=== PATIENT | male | born 1995 | race Two or more races ===

== ENCOUNTER 2022-06-17 14:37 | Emergency (ER) | payer SELFPAY ==
[2022-06-17 15:26] VITALS: BP 145/91; PULSE 93; RESP 18; TEMP 37.1; O2SAT 99; BMI 29.8
--- NOTE | 2022-06-17 15:26 | ED.MALEGU ---
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 Patient reports on Friday he had unprotected sexual intercourse with a new partner. Also complaining of urinary frequency. Denies dysuria, testicular pain, vomiting or fever. <Mary Ellen Brambila NP - Last Filed: 06/17/22 18:11> Related Data Home medications: Previous Rx's Medication Instructions Recorded doxycycline monohydrate 100 mg 100 mg PO BID #14 tabs 06/17/22 tablet <SHANNAN Melissa - Last Filed: 06/17/22 15:29> Allergies/Adverse reactions: Allergies Allergy/AdvReac Type Severity Reaction Status Date / Time No Known Allergies Allergy Verified 06/17/22 15:29 <SHANNAN Melissa - Last Filed: 06/17/22 15:29> Review of Systems Review of Systems: Yes all other systems are reviewed and are negative <LYLE Robles Last Filed: 06/17/22 18:11> Constitutional: Constitutional: Reports no additional constitutional complaints, Denies body ache(s), Denies chills, Denies fever(s), Denies headache(s) and Denies weakness <LYLE Robles Last Filed: 06/17/22 18:11> Eyes: Eyes: Reports no additional eye complaints and Denies change in vision <Mary Ellen Brambila TRANSVERSE ABDOMINAL MUSCLE SURGEON - Last Filed: 06/17/22 18:11> ENT: Reports system reviewed and no additional complaints, except as documented, Denies dizziness, Denies headache(s), Denies nasal congestion, Denies nasal discharge and Denies neck pain <Mary Ellen Brambila TRANSVERSE ABDOMINAL MUSCLE SURGEON - Last Filed: 06/17/22 18:11> Cardiovascular: Cardiovascular: Reports no additional cardiovascular complaints, Denies chest pain, Denies leg edema and Denies dyspnea <Mary Ellen Brambila, TRANSVERSE ABDOMINAL MUSCLE SURGEON - Last Filed: 06/17/22 18:11> Respiratory: Respiratory: Reports no additional respiratory complaints, Denies cough and Denies dyspnea <Mary Ellen Brambila, TRANSVERSE ABDOMINAL MUSCLE SURGEON - Last Filed: 06/17/22 18:11> Gastrointestinal: Gastrointestinal: Reports no additional gastrointestinal complaints, Denies abdominal pain, Denies diarrhea, Denies nausea and Denies vomiting <Mary Ellen Brambila TRANSVERSE ABDOMINAL MUSCLE SURGEON - Last Filed: 06/17/22 18:11> Genitourinary: Genitourinary: Reports penile discharge and Denies urinary incontinence <Mary Ellen Brambila, TRANSVERSE ABDOMINAL MUSCLE SURGEON - Last Filed: 06/17/22 18:11> Comments: Frequent urination <Mary Ellen Brambila TRANSVERSE ABDOMINAL MUSCLE SURGEON - Last Filed: 06/17/22 18:11> Musculoskeletal: Musculoskeletal: Reports no additional musculoskeletal complaints, Denies back pain, Denies arthralgias, Denies joint swelling, Denies neck pain, Denies numbness and Denies tingling <Mary Ellen Brambila TRANSVERSE ABDOMINAL MUSCLE SURGEON - Last Filed: 06/17/22 18:11> Integumentary/Breasts: Skin/Breast: Reports system reviewed and no additional complaints, except as docu and Denies rash <Mary Ellen Brambila TRANSVERSE ABDOMINAL MUSCLE SURGEON - Last Filed: 06/17/22 18:11> Neurologic: Reports system reviewed and no additional complaints, except as documented, Denies Abnormal speech present, Denies dizziness, Denies headache(s), Denies numbness, Denies tingling and Denies weakness <Mary Ellen Bramibla TRANSVERSE ABDOMINAL MUSCLE SURGEON - Last Filed: 06/17/22 18:11> PMFSH Past Medical History Attestation statement: The following information was validated with the patient. <Mary Ellen Brambila NP - Last Filed: 06/17/22 18:11> Source: old records reviewed <Mary Ellen Brambila NP - Last Filed: 06/17/22 18:11> Social History Social History: Social History Alcohol intake: never Smoked in Last 30 Days: No Use of substances other than those prescribed or required for medical reasons: No Advance Directives: No Advance Directives Information Provided: No <SHANNAN Melissa - Last Filed: 06/17/22 15:29> Physical Exam Vital Signs: Vital Signs: Last Vital Signs Temp 98.5 F 06/17/22 18:03 Pulse 83 06/17/22 18:03 Resp 19 06/17/22 18:03 BP 145/79 H 06/17/22 18:03 Pulse Ox 99 06/17/22 18:03 O2 Del Method Room Air 06/17/22 18:03 BMI result Body Mass Index 29.8 <SHANNAN Meilssa - Last Filed: 06/17/22 15:29> Vital Signs: Last Vital Signs Temp 98.5 F 06/17/22 18:03 Pulse 83 06/17/22 18:03 Resp 19 06/17/22 18:03 BP 145/79 H 06/17/22 18:03 Pulse Ox 99 06/17/22 18:03 O2 Del Method Room Air 06/17/22 18:03 BMI result Body Mass Index 29.8 <Mary Ellen Brambila NP - Last Filed: 06/17/22 18:11> Const: General: cooperative, healthy appearing, comfortable and no acute distress <Mary Ellen Brambila NP - Last Filed: 06/17/22 18:11> Orientation/consciousness: patient oriented x3 <Mary Ellen Brambila NP - Last Filed: 06/17/22 18:11> Limitations: no limitations <Mary Ellen Brambila NP - Last Filed: 06/17/22 18:11> HEENT: Head: Yes normal to inspection <Mary Ellen Brambila NP - Last Filed: 06/17/22 18:11> Ears: hearing grossly normal bilaterally <Mary Ellen Brambila TRANSVERSE ABDOMINAL MUSCLE SURGEON - Last Filed: 06/17/22 18:11> General nose exam: Normal external nose present <Mary Ellen Brambila TRANSVERSE ABDOMINAL MUSCLE SURGEON - Last Filed: 06/17/22 18:11> Face and sinus: Yes normal facial exam <Mary Ellen Brambila TRANSVERSE ABDOMINAL MUSCLE SURGEON - Last Filed: 06/17/22 18:11> Mouth: Normal oral and palatal mucosa present <Mary Ellen Brambila, TRANSVERSE ABDOMINAL MUSCLE SURGEON - Last Filed: 06/17/22 18:11> Throat: Yes posterior oropharynx normal <Mary Ellen Brambila, TRANSVERSE ABDOMINAL MUSCLE SURGEON - Last Filed: 06/17/22 18:11> Eyes: General: appearance normal, both eyes and all related structures <Mary Ellen Bramibla, TRANSVERSE ABDOMINAL MUSCLE SURGEON - Last Filed: 06/17/22 18:11> Pupils: Equal, round and reactive pupils present <Mary Ellen Brambila, TRANSVERSE ABDOMINAL MUSCLE SURGEON - Last Filed: 06/17/22 18:11> Neck: Neck: Yes normal visual inspection <Mary Ellen Brambila, TRANSVERSE ABDOMINAL MUSCLE SURGEON - Last Filed: 06/17/22 18:11> Chest: Chest palpation & inspection: normal inspection of the chest <Mary Ellen Brambila TRANSVERSE ABDOMINAL MUSCLE SURGEON - Last Filed: 06/17/22 18:11> Resp: Effort & Inspection: normal respiratory effort <Mary Ellen Brambila TRANSVERSE ABDOMINAL MUSCLE SURGEON - Last Filed: 06/17/22 18:11> Auscultation: clear to auscultation bilaterally <Mary Ellen Brambila TRANSVERSE ABDOMINAL MUSCLE SURGEON - Last Filed: 06/17/22 18:11> Cardio: Rate: regular rate <Mary Ellen Brambila TRANSVERSE ABDOMINAL MUSCLE SURGEON - Last Filed: 06/17/22 18:11> Rhythm: regular rhythm <Mary Ellen Brambila TRANSVERSE ABDOMINAL MUSCLE SURGEON - Last Filed: 06/17/22 18:11> Peripheral pulses: Peripheral pulses 2+ throughout <Mary Ellen Brambila TRANSVERSE ABDOMINAL MUSCLE SURGEON - Last Filed: 06/17/22 18:11> GI: Inspection: Yes normal to inspection <Mary Ellen Brambila TRANSVERSE ABDOMINAL MUSCLE SURGEON - Last Filed: 06/17/22 18:11> Palpation (GI): Soft to palpation and nontender <Mary Ellen Brambila TRANSVERSE ABDOMINAL MUSCLE SURGEON - Last Filed: 06/17/22 18:11> Auscultation: normal bowel sounds <Mary Ellen Brambila TRANSVERSE ABDOMINAL MUSCLE SURGEON - Last Filed: 06/17/22 18:11> : Other: che[place] assistant district attorney facilitator <Mary Ellen Brambila TRANSVERSE ABDOMINAL MUSCLE SURGEON - Last Filed: 06/17/22 18:11> Penis: normal penis and uncircumcised <Mary Ellen Brambila TRANSVERSE ABDOMINAL MUSCLE SURGEON - Last Filed: 06/17/22 18:11> Meatus: meatus normal <Mary Ellen Brambila, TRANSVERSE ABDOMINAL MUSCLE SURGEON - Last Filed: 06/17/22 18:11> Scrotum: scrotum normal <Mary Ellen Brambila TRANSVERSE ABDOMINAL MUSCLE SURGEON - Last Filed: 06/17/22 18:11> Testes: Testes normal, no testicular swelling and no testicular tenderness <Mary Ellen Brambila TRANSVERSE ABDOMINAL MUSCLE SURGEON - Last Filed: 06/17/22 18:11> Back/Spine/Pelvis: Thoracic/Lumbar Spine: thoracic and lumbar spine normal to inspection <Mary Ellen Brambila TRANSVERSE ABDOMINAL MUSCLE SURGEON - Last Filed: 06/17/22 18:11> Skin: General skin exam: no rashes or lesions noted <Mary Ellen Brambila TRANSVERSE ABDOMINAL MUSCLE SURGEON - Last Filed: 06/17/22 18:11> Neuro: General: patient oriented x3, no focal motor deficits and normal sensation to monofilament <Mary Ellen Brambila TRANSVERSE ABDOMINAL MUSCLE SURGEON - Last Filed: 06/17/22 18:11> Cranial nerves: Yes Equal, round and reactive pupils present <Mary Ellen Brambila TRANSVERSE ABDOMINAL MUSCLE SURGEON - Last Filed: 06/17/22 18:11> Cognition (Neuro): normal cognition <Mary Ellen Brambila TRANSVERSE ABDOMINAL MUSCLE SURGEON - Last Filed: 06/17/22 18:11> Speech: No Abnormal speech present <Mary Ellen Brambila TRANSVERSE ABDOMINAL MUSCLE SURGEON - Last Filed: 06/17/22 18:11> Gait exam (Neuro): Normal gait present <Mary Ellen Brambila TRANSVERSE ABDOMINAL MUSCLE SURGEON - Last Filed: 06/17/22 18:11> Motor exam (neuro): 5/5 motor strength present throughout <Mary Ellen Brambila TRANSVERSE ABDOMINAL MUSCLE SURGEON - Last Filed: 06/17/22 18:11> Extrem: General: Yes normal to inspection <Mary Ellen Brambila NP - Last Filed: 06/17/22 18:11> Course Course Course Narrative: RME: 27yo M c/o dysuria, penile discharge and pimple s/p unprotected intercourse last week. Also reports generalized testicular pain. Denies abd pain, N/V UA, CT/NG, Scrotal US ordered Full HPI, ROS and PE to be performed by primary ED provider. <SHANNAN Melissa - Last Filed: 06/17/22 15:29> Medical Decision Making Medical Decision Making [facility] Narrative: 27-year-old male here with complaints of penile discharge, penile itching and frequent urination since having unprotected sexual intercourse with a new partner. Will send testing for UA, gonorrhea and chlamydia Patient will be given ceftriaxone 500 mg IM and sent home with doxycycline oral <Mary Ellen Brambila NP - Last Filed: 06/17/22 18:11> Differential Diagnosis Differential Diagnoses: The differential diagnosis associated with the presentation includes <Mary Ellen Brambila NP - Last Filed: 06/17/22 18:11> STI, UTI <Mary Ellen Brambila NP - Last Filed: 06/17/22 18:11> Lab Data [facility] Lab Attestation statement: I reviewed the patient's lab results. <Mary Ellen Brambila NP - Last Filed: 06/17/22 18:11> Labs: Lab Results 06/17/22 Range/Units 15:50 Urine Color Yellow Urine Appearance Turbid Urine pH 7.5 (5.0-9.0) Ur Specific [place] >= 1.030 H (1.005-1.025) Urine Protein 30 (1+) H (Neg-Trace) mg/dL Urine Glucose (UA) Negative (Negative) mg/dL Urine Ketones Trace (Negative) mg/dL Urine Blood Negative (Negative) Urine Nitrite Negative (Negative) Ur Leukocyte Esterase Negative (Negative) Urine RBC 0-2 (0-2) /HPF Urine WBC 0-5 (0-5) /HPF Ur Squamous Epith Cells 0-2 (0-2) /HPF Urine Bacteria None Seen (None Seen) Hyaline Casts 0-2 (0-2) /LPF <SHANNAN Melissa - Last Filed: 06/17/22 15:29> Lab Results 06/17/22 Range/Units 15:50 Urine Color Yellow Urine Appearance Turbid Urine pH 7.5 (5.0-9.0) Ur Specific [place] >= 1.030 H (1.005-1.025) Urine Protein 30 (1+) H (Neg-Trace) mg/dL Urine Glucose (UA) Negative (Negative) mg/dL Urine Ketones Trace (Negative) mg/dL Urine Blood Negative (Negative) Urine Nitrite Negative (Negative) Ur Leukocyte Esterase Negative (Negative) Urine RBC 0-2 (0-2) /HPF Urine WBC 0-5 (0-5) /HPF Ur Squamous Epith Cells 0-2 (0-2) /HPF Urine Bacteria None Seen (None Seen) Hyaline Casts 0-2 (0-2) /LPF <Mary Ellen Brambila NP - Last Filed: 06/17/22 18:11> Prescription Management I considered prescription management with: Antibiotic <Mary Ellen Brambila NP - Last Filed: 06/17/22 18:11> Discharge Plan Discharge Clinical Impression: Concern about STD in male without diagnosis <SHANNAN Melissa - Last Filed: 06/17/22 15:29> Patient Disposition: Home, Self-Care <SHANNAN Melissa - Last Filed: 06/17/22 15:29> Instructions: Sexually Transmitted Diseases (ED) <SHANNAN Melissa - Last Filed: 06/17/22 15:29> Additional Instructions: We tested you for STDs. These results take 1-2 days to come back. We will call you if they are positive. We are treating you prophylactically for sexually transmitted diseases. Avoid unprotected sex until completing the course of antibiotics. [address], [place] Te hicimos la prueba de ETS. Estos resultados tardan de 1 a 2 d?as en volver. Te llamaremos si son positivos. Te estamos tratando profil?cticamente por enfermedades de transmisi?n sexual. Evite las relaciones sexuales sin protecci?n hasta completar el ciclo de antibi?ticos. <SHANNAN Melissa - Last Filed: 06/17/22 15:29> Prescriptions: New doxycycline monohydrate 100 mg tablet 100 mg PO BID Qty: 14 0RF <SHANNAN Melissa - Last Filed: 06/17/22 15:29> Referrals: Physician,None [Primary Care Provider] - 1 week <SHANNAN Melissa - Last Filed: 06/17/22 15:29> Print Language: [place] <SHANNAN Melissa - Last Filed: 06/17/22 15:29>
[2022-06-17 16:15] LABS: Appearance Urine Turbid; Color Urine Yellow; Glucose Urine UA Negative (Negative); Leukocyte Esterase Urine Negative (Negative); Nitrite Urine Negative (Negative); PH 7.5 (5.0-9.0); Specific Gravity - Urine >= 1.030 (1.005-1.025); UMIC TRIGGER UACC YES; Urine Blood Negative (Negative); Urine Ketones Trace mg/dL (Negative); Urine Protein 30 (1+) mg/dL (Neg-Trace)
[2022-06-17 16:20] LABS: Bacteria Urine None Seen (None Seen); Hyaline Casts Urine 0-2 /LPF (0-2); RBC Urine 0-2 /HPF (0-2); Squamous Epithelial Cell Urine 0-2 /HPF (0-2); WBC Urine 0-5 /HPF (0-5)
[2022-06-17 18:03] VITALS: BP 145/79; PULSE 83; RESP 19; TEMP 36.9; O2SAT 99
[2022-06-17] MEDS: cefTRIAXone sodium 500 MG, Lidocaine HCl 1 % MPF 1 ML IM (18:12)
[2022-06-17 18:13] LABS: CT PCR NOT DETECTED (Not Detect.); NG PCR NOT DETECTED (Not Detect.)
== END 2022-06-17 18:21 | disposition home or self-care (01) ==
PROVIDERS: Physician Assistant; Emergency Provider Emergency Medicine Emergency Medical Services
DX: R36.9 Urethral discharge, unspecified (principal); Z20.2 Contact with and (suspected) exposure to infections with a predominantly sexual mode of transmission
CPT/HCPCS: 0353U; 81001; 81003; 96372; 99284; J0696

== ENCOUNTER 2022-06-26 23:03 | Emergency (ER) | payer MEDICAID, OTHER, SELFPAY ==
--- NOTE | ~2022-06-26 | US_ITS ---
EXAMINATION: US SCROTUM CLINICAL INFORMATION: Scrotal pain.. COMPARISON: None available. TECHNIQUE: A sonogram of the scrotum was performed assessing arora-scale appearance and color Doppler flow. Spectral Doppler analysis of the arterial and venous flow were performed in the testes bilaterally. FINDINGS: RIGHT: Right testicle measures 4.0 x 2.5 x 3.6 cm, volume 18.5 mL. No focal testicular parenchymal lesions are visualized. Spectral Doppler analysis of the arterial and venous flow is normal in the right testis. Right epididymal head is normal in size. No right hydrocele or varicocele is seen. Right epididymal Doppler flow is normal. LEFT: Left testicle measures 4.2 x 2.3 x 3.4 cm, volume 17.3 mL. No focal testicular parenchymal lesions are visualized. Spectral Doppler analysis of the arterial and venous flow is normal in the left testis. Left epididymal head is normal in size. No left hydrocele or varicocele is seen. Left epididymal Doppler flow is normal. US/US scrotum doppler IMPRESSION: Unremarkable study. The testes are intrinsically normal.
--- NOTE | ~2022-06-26 | US_ITS ---
EXAMINATION: US SCROTUM CLINICAL INFORMATION: Scrotal pain.. COMPARISON: None available. TECHNIQUE: A sonogram of the scrotum was performed assessing arora-scale appearance and color Doppler flow. Spectral Doppler analysis of the arterial and venous flow were performed in the testes bilaterally. FINDINGS: RIGHT: Right testicle measures 4.0 x 2.5 x 3.6 cm, volume 18.5 mL. No focal testicular parenchymal lesions are visualized. Spectral Doppler analysis of the arterial and venous flow is normal in the right testis. Right epididymal head is normal in size. No right hydrocele or varicocele is seen. Right epididymal Doppler flow is normal. LEFT: Left testicle measures 4.2 x 2.3 x 3.4 cm, volume 17.3 mL. No focal testicular parenchymal lesions are visualized. Spectral Doppler analysis of the arterial and venous flow is normal in the left testis. Left epididymal head is normal in size. No left hydrocele or varicocele is seen. Left epididymal Doppler flow is normal. US/US scrotum IMPRESSION: Unremarkable study. The testes are intrinsically normal.
[2022-06-26 23:06] VITALS: BP 136/80; PULSE 86; RESP 18; TEMP 37; O2SAT 99; BMI 25.8
[2022-06-27 01:54] LABS: Appearance Urine Clear; Color Urine Yellow; Glucose Urine UA Negative (Negative); Leukocyte Esterase Urine Negative (Negative); Nitrite Urine Negative (Negative); Urine Blood Negative (Negative); Urine Ketones Negative (Negative); Urine Protein Negative (Neg-Trace)
--- NOTE | 2022-06-27 03:19 | PC.NURSE ---
hand off to zoraida minor
[2022-06-27 06:00] VITALS: BP 118/77; PULSE 63; RESP 16; TEMP 36.4; O2SAT 99
[2022-06-27 06:21] LABS: CT PCR NOT DETECTED (Not Detect.); NG PCR NOT DETECTED (Not Detect.)
--- NOTE | 2022-06-27 07:14 | ED_ITS ---
HPI - Male Genitourinary General Chief complaint: Urogenital-Male Stated complaint: urogenital male Time Seen by Provider: 06/27/22 06:33 Source: patient and client care consultant Mode of arrival: ambulatory Limitations: language barrier History of Present Illness HPI Narrative: 27 yo male healthy here with complaints of bilateral testicular pain intermittent since yesterday. Patient reports he was seen here 1 month ago for penile discharge, urethral discomfort and was treated for presumed STI with ceftriaxone/doxycycline. He felt him symptoms all improved with taking the doxycycline. these symptoms began after having unprotected sexual intercourse with a new female partner. He no longer has penile discharge, urinary symptoms but since yesterday has had bilateral testicular pain. No fevers, chills, abdominal pain, back pain, vomiting. MD Complaint: testicle pain Related Data Previous Rx's Medication Instructions Recorded doxycycline monohydrate 100 mg 100 mg PO BID #14 tabs 06/17/22 tablet doxycycline monohydrate 100 mg 100 mg PO BID #20 caps 06/27/22 capsule Allergies Allergy/AdvReac Type Severity Reaction Status Date / Time No Known Allergies Allergy Verified 06/17/22 15:29 Review of Systems Review of Systems: Yes all other systems are reviewed and are negative Constitutional: Constitutional: Reports no additional constitutional complain ts, Denies body ache(s), Denies chills, Denies fever(s), Denies headache(s) and Denies weakness Eyes: Eyes: Reports no additional eye complaints and Denies change in vision ENT: Reports system reviewed and no additional complaints, except as documented, Denies dizziness, Denies headache(s), Denies nasal congestion, Denies nasal discharge and Denies neck pain Cardiovascular: Cardiovascular: Reports no additional cardiovascular complaints, Denies chest pain, Denies leg edema and Denies dyspnea Respiratory: Respiratory: Reports no additional respiratory complaints, Denies cough and Denies dyspnea Gastrointestinal: Gastrointestinal: Reports no additional gastrointestinal complaints, Denies abdominal pain, Denies diarrhea, Denies nausea and Denies v omiting Genitourinary: Genitourinary: Denies hematuria, Denies flank pain, Denies penile discharge, Reports testicular pain, Denies urinary frequency, Denies urinary hesitancy, Denies urinary incontinence and Denies urinary urgency Musculoskeletal: Musculoskeletal: Reports no additional musculoskeletal complaints, Denies back pain, Denies arthralgias, Denies joint swelling, Denies neck pain, Denies numbness and Denies tingling Integumentary/Breasts: Skin/Breast: Reports system reviewed and no additional complaints, except as docu and Denies rash Neurologic: Reports system reviewed and no additional complaints, except as documented, Denies Abnormal speech present, Denies dizziness, Denies headache(s), Denies numbness, Denies tingling and Denies weakness PMFSH Past Medical History Attestation statement: The following information was validated with the patient. Source: old records reviewed and nursing notes reviewed Social History Social History Alcohol intake: never Use of substances other than those prescribed or required for medical reasons: No Advance Directives: No Advance Directives Information Provided: Yes Physical Exam Vital Signs: Vital Signs: Last Vital Signs Temp 97.5 F 06/27/22 06:00 Pulse 63 06/27/22 06:00 Resp 16 06/27/22 06:00 BP 118/77 06/27/22 06:00 Pulse Ox 99 06/27/22 06:00 O2 Del Method Room Air 06/27/22 06:00 BMI result Body Mass Index 25.8 Const: General: cooperative, healthy appearing, comfortable and no acute distress Orientation/consciousness: patient oriented x3 Limitations: no limitations HEENT: Head: Yes normal to inspection Ears: hearing grossly normal bilaterally General nose exam: Normal external nose present Face and sinus: Yes normal facial exam Mouth: Normal oral and palatal mucosa present Throat: Yes posterior oropharynx normal Eyes: General: appearance normal, both eyes and all related structures Pupils: Equal, round and reactive pupils present Neck: Neck: Yes normal visual inspection Chest: Chest palpation & inspection: normal inspection of the chest Resp: Effort & Inspection: normal respiratory effort Auscultation: clear to auscultation bilaterally Cardio: Rate: regular rate Rhythm: regular rhythm Peripheral pulses: Peripheral pulses 2+ throughout GI: Inspection: Yes normal to inspection Palpation (GI): Soft to palpation and nontender Auscultation: normal bowel sounds : 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 General: Yes no CVA tenderness Penis: normal penis and uncircumcised Meatus: meatus normal Scrotum: scrotum normal Testes: no testicular mass, no testicular swelling and testicular tenderness (bilateral) Back/Spine/Pelvis: Back: no CVA tenderness Thoracic/Lumbar Spine: thoracic and lumbar spine normal to inspection Skin: General skin exam: no rashes or lesions noted Neuro: General: patient oriented x3, no focal motor deficits and normal sensation to monofilament Cranial nerves: Yes Equal, round and reactive pupils present Cognition (Neuro): normal cognition Speech: No Abnormal speech present Gait exam (Neuro): Normal gait present Motor exam (neuro): 5/5 motor strength present throughout Extrem: General: Yes normal to inspection, Yes no pedal edema and Yes no calf tenderness Course Course Course Narrative: Ultrasound is negative for torsion. Clinically patient has epididymitis. Patient will be treated with doxycycline for 10 days. I recommend patient is saw was a primary care doctor and follow-up with 1 as he has not done so. Reviewed worrisome signs and symptoms of when to return to the emergency room. Comfortable plan for discharge home. Medical Decision Making Medical Decision Making [facility] Narrative: this is a 27-year-old male who presents to the ER with intermittent bilateral testicular pain since yesterday. Patient reports 1 month ago he had unprotected sexual intercourse with a new female partner. Four days later he developed dysuria and penile discharge. He was seen here in this emergency room and was tested for STIs. He was negative for gonorrhea and chlamydia. He was treated with ceftriaxone and sent home with 1 week of doxycycline oral. Patient reports all his symptoms improved with taking the doxycycline. He was feeling well until yesterday when he noticed intermittent bilateral testicular pain. He has no other associated symptoms. On exam patient has bilateral testicular pain with no swelling noted. Will obtain UA, gonorrhea and chlamydia testing, testicular ultrasound Differential Diagnosis Differential Diagnoses: The differential diagnosis associated with the presentation includes STI, epididymitis, orchitis, less likely torsion Lab Data [facility] Lab Attestation statement: I reviewed the patient's lab results. Labs: Lab Results 06/27/22 06/27/22 Range/Units 01:46 04:47 Urine Color Yellow Urine Appearance Clear Urine pH 6.0 (5.0-9.0) Ur Specific [place] 1.020 (1.005-1.025) Urine Protein Negative (Neg-Trace) mg/dL Urine Glucose (UA) Negative (Negative) mg/dL Urine Ketones Negative (Negative) mg/dL Urine Blood Negative (Negative) Urine Nitrite Negative (Negative) Ur Leukocyte Esterase Negative (Negative) Chlam trachomat DNA PCR NOT DETECTED (Not Detect.) N.gonorrhoeae DNA (PCR) NOT DETECTED (Not Detect.) Independent Interpretation I performed an independent interpretation of an: Ultrasound Interpretation: I indepedentely reviewed the ultrasound and agree with the radiologist's report Radiology Impression Discussion of test interpretation with radiology: I have reviewed the radiologist's reading. Radiologist Impression: [address] [address] Ultrasound Report Signed Patient: Paolo Carvajal MR#: [id number] : 1995 Acct:[id number] Age/Sex: 27 / M ADM Date: 06/27/22 Loc: HO.ED Attending Dr: Ordering Physician: Roman Edwards MD Date of Service: 06/27/22 Procedure(s): US scrotum Accession Number(s): [id number] cc: Roman Edwards MD~ EXAMINATION: US SCROTUM CLINICAL INFORMATION: Scrotal pain.. COMPARISON: None available. TECHNIQUE: A sonogram of the scrotum was performed assessing arora-scale appearance and color Doppler flow. Spectral Doppler analysis of the arterial and venous flow were performed in the testes bilaterally. FINDINGS: RIGHT: Right testicle measures 4.0 x 2.5 x 3.6 cm, volume 18.5 mL. No focal testicular parenchymal lesions are visualized. Spectral Doppler analysis of the arterial and venous flow is normal in the right testis. Right epididymal head is normal in size. No right hydrocele or varicocele is seen. Right epididymal Doppler flow is normal. LEFT: Left testicle measures 4.2 x 2.3 x 3.4 cm, volume 17.3 mL. No focal testicular parenchymal lesions are visualized. Spectral Doppler analysis of the arterial and venous flow is normal in the left testis. Left epididymal head is normal in size. No left hydrocele or varicocele is seen. Left epididymal Doppler flow is normal. US/US scrotum IMPRESSION: Unremarkable study. The testes are intrinsically normal. Discharge Plan Discharge Clinical Impression: Epididymitis Patient Disposition: Home, Self-Care Instructions: Epididymitis (ED) Additional Instructions: Your ultrasound shows good blood flow tear testicles.? Her urine shows no signs of infection.? You likely have epididymitis.? Take the antibiotics as prescribed.? Take Motrin or Tylenol for pain as needed.? Please follow-up with primary care doctor for any continued symptoms.[place]ullen ecograf?a muestra test?culos lagrimales con buen flujo sangu?gale. [place] orina no muestra signos de infecci?n. Es probable que tengas epididimitis. [place] los antibi?ticos seg?n lo prescrito. [place] Motrin o Tylenol para el dolor seg?n sea necesario. Por favor, mikki un seguimiento con el m?dico de atenci?n primaria por cualquier s?ntoma continuo. Prescriptions: New doxycycline monohydrate 100 mg capsule 100 mg PO BID Qty: 20 0RF No Action doxycycline monohydrate 100 mg tablet 100 mg PO BID Qty: 14 0RF Referrals: Physician,Unknown J [Primary Care Provider] - 1 week Interventions: ED Discharge Assessment Last Done: 06/27/22 10:20 Discharge Date/Time: 06/27/22 10:20
== END 2022-06-27 10:20 | disposition home or self-care (01) ==
PROVIDERS: Emergency Provider Emergency Medicine
DX: N45.1 Epididymitis (principal); N50.812 Left testicular pain; N50.811 Right testicular pain
CPT/HCPCS: 0353U; 76870; 81003; 93975; 99284